=== PATIENT | female | born 1980 ===

== ENCOUNTER 2018-08-11 02:29 | Day surgery (SDC) | payer BC ==
[~2018-08-11] VITALS: Ht 162.6 cm; Wt 144.2 kg
[~2018-08-11 02:29] MED LIST: BUPR8TAB7 SL; CLON-1 PO; ESZ2 PO; LAMO100T56 PO; OLAN20TA18 PO
[2018-08-11] MEDS: FAMOTIDINE 20 MG TAB ONE ×2 (05:08→08:27)
[2018-08-11] MEDS ORDERED: ceFAZolin(*) 2GM/D5W 50ML 50 ML IVPB ONE (06:30)
[2018-08-11] MEDS ORDERED: ROPIVACAINE 0.5% 20 ML VIAL ONE (08:18)
[2018-08-11] MEDS ORDERED: DEXAMETHASONE SOD PHOS 10MG/ML ONE (08:19)
[2018-08-11] MEDS ORDERED: LIDOCAINE 2% IV 100 MG/5ML SYR ONE (08:22)
[2018-08-11] MEDS ORDERED: PROPOFOL EMUL(*) 10MG/ML 20 ML 20 ML ONE (08:22)
[2018-08-11] MEDS ORDERED: fentaNYL CITR 250 MCG/5 ML AMP ONE (08:23)
[2018-08-11] MEDS: FAMOTIDINE 20 MG/50 ML PREMIX IVPB ONE ×2 (08:27→08:39)
[2018-08-11 09:07] VITALS: BP 135/97
[2018-08-11] MEDS ORDERED: MIDAZOLAM 2 MG/2 ML VIAL IVP PRN (09:25)
[2018-08-11] MEDS ORDERED: NORMOSOL R SOLN(*) 1000 ML BAG 1,000 ML IV PRN (09:25)
[2018-08-11] MEDS ORDERED: LIDOCAINE/SOD BICARB 8.4% SYR ID ONE (09:25)
[2018-08-11] MEDS ORDERED: ROPIVACAINE 0.2% 400 MG/200ML 250 ML CONINFUS ONE (09:25)
[2018-08-11] MEDS ORDERED: NS(*) 0.9% 10 ML VIAL 10 ML ONE (09:27)
[2018-08-11] MEDS ORDERED: ROPIVACAINE 0.2% 20 ML VIAL ONE (09:28)
[2018-08-11] MEDS ORDERED: ONDANSETRON 4 MG/2 ML VIAL ONE (09:42)
[2018-08-11] MEDS ORDERED: KETAMINE HCL 200 MG/20 ML MDV ONE (09:44)
[2018-08-11] MEDS ORDERED: fentaNYL CITR 100 MCG/2 ML AMP ONE ×3 (10:52→12:37)
[2018-08-11] MEDS ORDERED: LABETALOL HCL 100 MG/20ML VIAL ONE (11:15)
[2018-08-11] MEDS ORDERED: PROMETHAZINE 25 MG/ML 1 ML AMP ONE (12:15)
[2018-08-11 13:00] VITALS: BP 135/81
[2018-08-11] MEDS ORDERED: ASPI-1471 PO (13:06)
[2018-08-11] MEDS ORDERED: KETOROLAC 30 MG/ML VIAL ONE (13:06)
[2018-08-11 13:08] VITALS: BP 147/92
[2018-08-11] MEDS ORDERED: ASPIRIN 81 MG ENTERIC COATED PO ONE (13:10)
--- NOTE | 2018-08-11 15:06 | OPERATIVE REPORT 1 ---
EVENT DATE: August 11, 2018 SURGEON: Jose L Sagastume MD ANESTHESIOLOGIST: Lucian Terrell MD ANESTHESIA: General PREOPERATIVE DIAGNOSES 1. Severe ankle instability with peroneal tendon tear. 2. Hallux valgus deformity. 3. Hypermobile first ray. POSTOPERATIVE DIAGNOSES 1. Severe ankle instability with peroneal tendon tear. 2. Hallux valgus deformity. 3. Hypermobile first ray. PROCEDURES PERFORMED 1. Lateral ligament reconstruction with an internal brace. 2. Peroneal tendon reconstruction and debridement. 3. Lapidus procedure. 4. Modified Lovell bunionectomy. TOURNIQUET TIME Less than two hours. DESCRIPTION OF OPERATION Patient brought to the operating room and placed in the supine position. She had a bump placed under the right lower extremity. It was prepped and draped in the normal sterile fashion using Prevail, sterile stockinette, sterile U-drape, and sterile shower drape placed on the lower extremities. The stockinette was incised right above the knee and held with Coban. Esmarch was then used to exsanguinate the lower extremity. The tourniquet was turned up to 300 mmHg. First incision made directly over the lateral malleolus just anterior over the anterior talofibular ligament. Skin was incised with a 15 blade down to the subcutaneous tissue. Subcutaneous tissue bluntly dissected down to the prior repair, which we could easily see was there, but not actually intact. It had actually pulled the piece bone completely off, and it was completely lax. I then from here removed any of the old sutures and the bone that had actually been pulled off. I went down into the ankle joint to make sure there were no cartilage lesions, which there were not. There was just a lot of scarring over this area, which I debrided using a rongeur, knife, and pickup. Once that was done, I then drilled my starting hole into the lateral talus, placed, then tapped the lateral talus, and then placed the talar side of the internal bridge in without any difficulty. I then brought it over, found exactly where I wanted to put it to make an anatomic repair on the fibula. I then drilled the fibula and tensioned it appropriately. I marked on the tape exactly where I thought the tensioning was supposed to be. I then placed my second interference screw into the fibula, holding the tension in the right position. Once it was there, I then cut the tapes to the length that I wanted them. From here, I checked the stability. It felt extremely stable with varus testing. I then placed a suture anchor distally and then did a [id number] manner repair of the anterior talofibular ligament and the retinaculum. Once that was done, I then turned my attention to the peroneal tendon. I opened up the behind the fibula. Skin incised with a 15 blade down to subcutaneous tissue. Subcutaneous tissue was bluntly dissected down to the retinaculum. As soon as I opened the retinaculum, the peroneal brevis tendon popped out at me completely flat with a tear down the middle and an extra piece of muscle. I removed the extra piece of muscle. I repaired the tear that was in the center of it using a 3-0 FiberWire in a running stitch manner, not only to repair the tear, but also to tubularize the tendon. Once that was completely tubularized, I was able to put it back in the groove. It stayed nicely. I put the peroneal longus tendon behind it which also stayed nicely. I then placed two suture anchors into the fibula and tightly repaired the fibular retinaculum to hold the two in the exact position they needed to be. Once they were in a nice position, I was able to watch them move underneath the repair in perfect sync one on top of the other. I then turned my attention to the Lapidus procedure. I made an incision directly over the first TMT joint. Skin incised with a 15 blade down to subcutaneous tissue. Subcutaneous tissue was bluntly dissected all the way down to the base of the first MTP joint. I was able to put two Hohmanns around the base of first MTP joint and made an osteotomy of the medial cuneiform in a wedge-shaped manner. Once I was able to do that, I removed all the down to the base of it to make sure I had good positioning. I brought the first metatarsal over, found to have excellent alignment. I then placed a screw distal to proximal, lagging it to get good compression, which I did, and then I placed a derotational screw going from medial to lateral to hold it in the correct position while it fused. Once those were appropriate and in good position, I brought the fluoroscopy in and made sure that the first metatarsal was in the right position, which it was directly over the sesamoids. I then made an incision just over the medial eminence of the hallux valgus deformity. Skin was incised with a 15 blade down to subcutaneous tissue. I then made a reverse seven incision over the retinaculum, opened the retinaculum, took a saw, made a slight resection of the spurs that were there on the medial eminence. Once that was done. I made a small poke hole over the intermetatarsal angle between the first and the second. I then released the intermetatarsal angle and reefed the medial joint, which enabled to bring that toe over nicely. I then closed and finished the retinaculum closure on the medial side using the 3-0 Ethibond in a horizontal stitch manner to tighten that up under fluoroscopy with not touching it. The toe and the joint were in perfect position. I closed the skin using 3-0 Monocryl and 4-0 Monocryl in running stitch manner. Adaptic 4 x 4's and a big, bulky Howell dressing applied. Patient went to Recovery. No complications. LUCIAN
== END 2018-08-11 12:45 | disposition home or self-care (01) ==
LOC: OR 02:29
PROVIDERS: ATTEND Orthopaedic Surgery
DX: S86.311A Strain of muscle(s) and tendon(s) of peroneal muscle group at lower leg level, right leg, initial encounter (principal); M20.11 Hallux valgus (acquired), right foot
CPT/HCPCS: 27695; 28208; 28292; 76942; C1713; J1100; J1885; J2001; J2250; J2405; J2550; J2704; J2795; J3010; J3490; J0690